=== PATIENT | male | born 1970 | race Native Hawaiian/Other Pacific Islander ===

== ENCOUNTER 2017-02-06 02:36 | Emergency (ER) | payer SELFPAY ==
[2017-02-06 03:09] VITALS: BP 147/105
== END 2017-02-06 04:26 | disposition left against medical advice (07) ==
LOC: ED 02:36
DX: S09.90XA Unspecified injury of head, initial encounter (principal); X58.XXXA Exposure to other specified factors, initial encounter; Y93.9 Activity, unspecified; Y92.89 Other specified places as the place of occurrence of the external cause; Y99.9 Unspecified external cause status; Z53.21 Procedure and treatment not carried out due to patient leaving prior to being seen by health care provider

== ENCOUNTER 2018-02-09 16:18 | Emergency (ER) | payer SELFPAY ==
[2018-02-09 16:45] VITALS: BP 150/99
[2018-02-09] MEDS ORDERED: ASPIRIN PO ONE (16:45)
[2018-02-09] MEDS ORDERED: ASPIRIN ONE (16:49)
[2018-02-09 17:08] LABS: Basophils % (Auto) 0.3 % (0.0-1.8); Eosinophils # (Auto) 0.1 K/mm3 (0.0-0.4); Eosinophils % (Auto) 1.3 % (0.0-4.3); Hematocrit 43.3 % (35.5-45.6); Hemoglobin 14.7 gm/dl (11.8-15.2); Lymphocytes # (Auto) 1.6 K/mm3 (1.2-5.4); Lymphocytes % (Auto) 22.5 % (13.4-35.0); Mean Corpuscular HGB Conc 34 % (32-34); Mean Corpuscular Hemoglobin 31 pg (28-32); Mean Corpuscular Volume 91 fl (84-94); Monocytes # (Auto) 0.6 K/mm3 (0.0-0.8); Monocytes % (Auto) 8.6 % (0.0-7.3); Platelet Count 233 K/mm3 (140-440); Red Blood Count 4.74 M/mm3 (3.65-5.03); Red Cell Distribution Width 13.5 % (13.2-15.2)
[2018-02-09 17:34] LABS: BUN/Creatinine Ratio 10; Blood Urea Nitrogen 9 mg/dL (9-20); Calcium 8.9 mg/dL (8.4-10.2); Hemolysis Index 6
--- NOTE | 2018-02-09 18:33 | Emergency Department Report ---
ED Chest Pain HPI - General Chief Complaint: Chest Pain Stated Complaint: CHEST PAINS Time Seen by Provider: 02/09/18 18:11 Source: patient Mode of arrival: Ambulatory Limitations: No Limitations - History of Present Illness Initial Comments: Patient is a 47-year-old male who states he is having some chest discomfort and facial numbness earlier today. Patient states that he believes this is secondary to anxiety. Patient does have a history of anxiety is been under a lot of stress lately. Patient last night O Rukhsana with his and went to a bar was drinking heavily smoking cigarettes and also snorted a little cocaine. Patient states this is not unusual behavior for him. Patient currently have to taking his anxiety medicines states he feels much improved. His chest pain isn't resolved. The patient does denies any shortness of breath nausea vomiting diarrhea fevers or chills at this time. - Related Data Allergies Allergy/AdvReac Type Severity Reaction Status Date / Time No Known Allergies Allergy Verified 02/06/17 02:53 Heart Score - HEART Score History: Slightly suspicious EKG: Normal Age: < 45 Risk factors: 1-2 risk factors Troponin: < normal limit HEART Score: 1 ED Review of Systems ROS: Stated complaint: CHEST PAINS Other details as noted in HPI Comment: All other systems reviewed and negative ED Past Medical Hx - Past Medical History Hx Pulmonary Embolism: Yes (anxiety) - Surgical History Past Surgical History?: No - Social History Smoking Status: Current Every Day Smoker Substance Use Type: Alcohol, Cocaine ED Physical Exam - General Limitations: No Limitations General appearance: alert, in no apparent distress - Head Head exam: Present: atraumatic, normocephalic - Eye Eye exam: Present: normal appearance - ENT ENT exam: Present: mucous membranes moist - Neck Neck exam: Present: normal inspection - Respiratory Respiratory exam: Present: normal lung sounds bilaterally. Absent: respiratory distress, wheezes, rales, rhonchi - Cardiovascular Cardiovascular Exam: Present: regular rate, normal rhythm. Absent: systolic murmur, diastolic murmur, rubs, gallop - GI/Abdominal GI/Abdominal exam: Present: soft, normal bowel sounds. Absent: distended, tenderness, guarding, rebound - Rectal Rectal exam: Present: deferred - Extremities Exam Extremities exam: Present: normal inspection - Back Exam Back exam: Present: normal inspection - Neurological Exam Neurological exam: Present: alert, oriented X3 - Psychiatric Psychiatric exam: Present: normal affect, normal mood - Skin Skin exam: Present: warm, dry, intact, normal color. Absent: rash ED Course Vital Signs 02/09/18 16:39 Temperature 99 F Pulse Rate 86 Respiratory 18 Rate Blood Pressure 150/99 O2 Sat by Pulse 99 Oximetry ED Medical Decision Making - Lab Data Result diagrams: 02/09/18 16:53 02/09/18 16:53 Lab Results 02/09/18 02/09/18 Range/Units 16:53 16:53 WBC 7.1 (4.5-11.0) K/mm3 RBC 4.74 (3.65-5.03) M/mm3 Hgb 14.7 (11.8-15.2) gm/dl Hct 43.3 (35.5-45.6) % MCV 91 (84-94) fl MCH 31 (28-32) pg MCHC 34 (32-34) % RDW 13.5 (13.2-15.2) % Plt Count 233 (140-440) K/mm3 Lymph % (Auto) 22.5 (13.4-35.0) % [place] % (Auto) 8.6 H (0.0-7.3) % Eos % (Auto) 1.3 (0.0-4.3) % Baso % (Auto) 0.3 (0.0-1.8) % Lymph # 1.6 (1.2-5.4) K/mm3 [place] # 0.6 (0.0-0.8) K/mm3 Eos # 0.1 (0.0-0.4) K/mm3 Baso # 0.0 (0.0-0.1) K/mm3 Seg Neutrophils % 67.3 (40.0-70.0) % Seg Neutrophils # 4.8 (1.8-7.7) K/mm3 Sodium 139 (137-145) mmol/L Potassium 4.0 (3.6-5.0) mmol/L Chloride 101.8 (98-107) mmol/L Carbon Dioxide 25 (22-30) mmol/L Anion Gap 16 mmol/L BUN 9 (9-20) mg/dL Creatinine 0.9 (0.8-1.5) mg/dL Estimated GFR > 60 ml/min BUN/Creatinine Ratio 10 % Glucose 96 (75-100) mg/dL Calcium 8.9 (8.4-10.2) mg/dL Troponin T < 0.010 (0.00-0.029) ng/mL - EKG Data -: EKG Interpreted by Me - EKG Data 02/09/18 18:31 EKG shows sinus rhythm rate 81 axis is normal intervals are normal patient has Q -wave in V2 there is no ST segment elevation or depressions present. Time of interpretation is 1635 - Medical Decision Making Symptoms have resolved him were most likely secondary to cocaine abuse and anxiety. Patient is to continue with his anxiety meds calcification the patient on drug use and patient be discharged home. Critical care attestation.: If time is entered above; I have spent that time in minutes in the direct care of this critically ill patient, excluding procedure time. ED Disposition Clinical Impression: Atypical chest pain, Cocaine abuse, Anxiety reaction Disposition: DC-01 TO HOME OR SELFCARE Is pt being admited?: No Does the pt Need Aspirin: No Condition: Stable Instructions: Chest Pain (ED) Referrals: PRIMARY CARE, [Primary Care Provider] - 3-5 Days Time of Disposition: 18:34
== END 2018-02-09 18:50 | disposition home or self-care (01) ==
LOC: ED 16:18
DX: R07.89 Other chest pain (principal); R20.0 Anesthesia of skin; F41.1 Generalized anxiety disorder; F14.10 Cocaine abuse, uncomplicated; F17.200 Nicotine dependence, unspecified, uncomplicated
CPT/HCPCS: 36415; 80048; 84484; 85025; 93005; 93010

== ENCOUNTER 2018-08-01 16:31 | Emergency (ER) | payer OTHER ==
--- NOTE | 2018-08-01 16:50 | Emergency Department Report ---
Blank Doc - Documentation Documentation: This is a 48-year-old male that presents with cervical spine pain. Patient was seen by PCP and is requesting for an cervical spine xray to r/o degenerative disc disease. This initial assessment/diagnostic orders/clinical plan/treatment(s) is/are subject to change based on patient's health status, clinical progression and re- assessment by fellow clinical providers in the ED. Further treatment and workup at subsequent clinical providers discretion. Patient/guardians urged not to elope from the ED as their condition may be serious if not clinically assessed and managed. Initial orders include: 1- Patient sent to [facility] for further evaluation and treatment 2- xray
[2018-08-01 16:54] VITALS: BP 137/87
--- NOTE | 2018-08-01 19:18 | XRay Report ---
PROCEDURE: XR SPINE CERVICAL 2-3V TECHNIQUE: AP, lateral , swimmer's, and odontoid views of the cervical spine HISTORY: cervical spine . Headache with left-sided weakness COMPARISONS: None . FINDINGS: The vertebral body heights are well maintained. Mild disc space narrowing at C3-C4 and C5-C6 is noted with spurring anteriorly at these levels. The alignment is normal. No prevertebral soft tissue swell ing is seen. The odontoid is intact. IMPRESSION: No acute abnormality in the cervical spine. Degenerative disc changes at C3-C4 and C5-C6 This document is electronically signed by Geraldine Mahoney MD., August 01 2018 07:15:36 PM ET
--- NOTE | 2018-08-01 19:36 | Emergency Department Report ---
ED Neck Pain [facility] Chief Complaint: Neck Pain/Injury Stated Complaint: NECK PAIN Time Seen by Provider: 08/01/18 16:48 Neck Pain Location: Posterior Neck Severity: moderate Symptoms: Yes Pain with Movement, Yes Radiation to Right Upper Ext, No Numbness, No Weakness, No Previous History Other History: 62 male comes in with a prescription from [facility] to have cervical spine films. Patient reports pain in his neck that radiates to his left upper extremity. Patient denies any trauma. Patient is currently taking Soma, citalopram, and diclofenac. Patient reports that those medications help with his pain. ED Review of Systems ROS: Stated complaint: NECK PAIN Other details as noted in HPI ED Past Medical Hx - Past Medical History Hx Pulmonary Embolism: Yes (anxiety) - Social History Smoking Status: Current Every Day Smoker Substance Use Type: None Neck Pain Exam - Exam General: Vital signs noted. No distress. Alert and acting appropriately. HEENT: No Facial Pain, No Scalp Tenderness, No Contusion, No Abrasion, No Laceration Neck Pain: Yes Midline Tenderness, Yes Right Paraspinal Tenderness, Yes Left Paraspinal Tenderness, Yes Right Trapezius Tenderness, Yes Left Trapezius Tenderness, Yes Pain with Rotation Left, Yes Pain with Extension, Yes Pain with Flexion, Yes pain with R Lateral Flexion, Yes Pain with L Lateral Flexion Chest: Yes Clear Lung Sounds, No Pain with Respirations Heart: Yes Regular Back: No Thoracic Tenderness, No Lumbar Tenderness Neuro: No Numbness, No Weakness, No Normal Reflexes, No Radicular Deficits ED Course Vital Signs 08/01/18 16:51 Temperature 98.1 F Pulse Rate 82 Respiratory 18 Rate Blood Pressure 137/87 O2 Sat by Pulse 99 Oximetry ED Medical Decision Making - Radiology Data Radiology results: report reviewed Patient: RAPHAEL RUCKER MR#: [id number] 4 : 1970 Acct:[id number] Age/Sex: 48 / M ADM Date: 08/01/18 Loc: ED Attending Dr: Ordering Physician: RADHA NOGUERA NP Date of Service: 08/01/18 Procedure(s): XR spine cervical 2-3V Accession Number(s): [id number] cc: RADHA NOGUERA NP Fluoro Time In Minutes: PROCEDURE: XR SPINE CERVICAL 2-3V TECHNIQUE: AP, lateral , swimmer's, and odontoid views of the cervical spine HISTORY: cervical spine . Headache with left-sided weakness COMPARISONS: None . FINDINGS: The vertebral body heights are well maintained. Mild disc space narrowing at C3- C4 and C5-C6 is noted with spurring anteriorly at these levels. The alignment is normal. No prevertebral soft tissue swelling is seen. The odontoid is intact. IMPRESSION: No acute abnormality in the cervical spine. Degenerative disc changes at C3-C4 and C5- C6 This document is electronically signed by Geraldine Mahoney MD., August 01 2018 07:15:36 PM ET Transcribed By: [facility] Dictated By: GERALDINE MAHONEY MD Electronically Authenticated By: GERALDINE MAHONEY MD Signed Date/Time: 08/01/181917 DD/ 18 TD/TT: 08/01/181719 - Medical Decision Making Patient has been evaluated by this provider in [facility]. Cervical spine x-rays were performed shows patient has degenerative disc disease C3 to the 4 and C4 and C5. This is made to be given to patient to take back to [facility] [place]. Patient is to continue with PAIN medications that being given to him by his primary care provider and [facility] [place]. Critical care attestation.: If time is entered above; I have spent that time in minutes in the direct care of this critically ill patient, excluding procedure time. ED Disposition Clinical Impression: Cervical pain (neck) Disposition: DC-01 TO HOME OR SELFCARE Is pt being admited?: No Does the pt Need Aspirin: No Condition: Stable Instructions: Cervical Radiculopathy (ED) Additional Instructions: Please continue with here medications that have been prescribed by her doctors. Please take her disks Dr. Loaiza for review. [facility]AR[facility] [Primary Care Provider] - 3-5 Days LAURIE LOAIZA JR, MD [Referring] - 3-5 Days
== END 2018-08-01 20:11 | disposition home or self-care (01) ==
LOC: ED 16:31
DX: M54.2 Cervicalgia (principal); F17.200 Nicotine dependence, unspecified, uncomplicated
CPT/HCPCS: 72040

== ENCOUNTER 2020-04-28 20:04 | Emergency (ER) | payer SELFPAY ==
--- NOTE | 2020-04-28 20:47 | Event Note ---
ED Screening Note ED Screening Note: states he had blood in stool two episodes abd pain began 3-4 days ago no n/v/d straining to have a BM no fever no dysuria, no urinary symptoms pmhx PUD allergy: none +ETOH, once a week +smoker, 2 packs a week This initial assessment/diagnostic orders/clinical plan/treatment(s) is/are subject to change based on patients health status, clinical progression and re- assessment by fellow clinical providers in the ED. Further treatment and workup at subsequent clinical providers discretion. Patient/guardian urged not to elope from the ED as their condition may be serious if not clinically assessed and managed. Initial orders include: labs
[2020-04-28 21:23] LABS: Basophils % (Auto) 0.3 % (0.0-1.8); Eosinophils # (Auto) 0.1 K/mm3 (0.0-0.4); Eosinophils % (Auto) 1.1 % (0.0-4.3); Hematocrit 41.2 % (35.5-45.6); Hemoglobin 13.9 gm/dl (11.8-15.2); Lymphocytes # (Auto) 2.1 K/mm3 (1.2-5.4); Lymphocytes % (Auto) 22.6 % (13.4-35.0); Mean Corpuscular HGB Conc 34 % (32-34); Mean Corpuscular Volume 91 fl (84-94); Monocytes # (Auto) 0.6 K/mm3 (0.0-0.8); Monocytes % (Auto) 6.3 % (0.0-7.3); Platelet Count 244 K/mm3 (140-440); Red Blood Count 4.53 M/mm3 (3.65-5.03); Red Cell Distribution Width 12.3 % (13.2-15.2)
[2020-04-28 21:43] LABS: Alanine Aminotransferase 20 units/L (7-56); Albumin 4.3 g/dL (3.9-5); BUN/Creatinine Ratio 13; Blood Urea Nitrogen 12 mg/dL (9-20); Calcium 9.5 mg/dL (8.4-10.2); Hemolysis Index 4
[2020-04-28] MEDS ORDERED: dexAMETHasone 20 MG/5 ML VIAL IM ONE (22:30)
[2020-04-28] MEDS ORDERED: KETOROLAC 30 MG/1 ML INJ IM ONE (22:30)
--- NOTE | 2020-04-28 23:22 | Cat Scan Report ---
CT ABDOMEN AND PELVIS WITHOUT CONTRAST INDICATION / CLINICAL INFORMATION: bilateral flank pain. TECHNIQUE: Axial CT images were obtained through the abdomen and pelvis without IV contrast. All CT scans at our [facility] location are performed using CT dose reduction for ALARA by means of automated exposure control. COMPARISON: None available. FINDINGS: LOWER CHEST: No significant abnormality. LIVER: No significant abnormality. GALLBLADDER: No significant abnormality. BILE DUCTS: No significant abnormality. PANCREAS: No significant abnormality. SPLEEN: No significant abnormality. ADRENALS: No significant abnormality. RIGHT KIDNEY and URETER: No significant abnormality. LEFT KIDNEY and URETER: No significant abnormality. STOMACH and SMALL BOWEL: No significant abnormality. COLON: No significant abnormality. APPENDIX: Not definitively seen, but there are no findings to suggest appendicitis. PERITONEUM: No free fluid. No free air. No fluid collection. LYMPH NODES: No significant adenopathy. AORTA and ARTERIES: No significant abnormality. IVC and VEINS: No significant abnormality. URINARY BLADDER: No significant abnormality. REPRODUCTIVE ORGANS: No significant abnormality. ADDITIONAL FINDINGS: None. SKELETAL SYSTEM: No significant abnormality. IMPRESSION: 1. No acute process identified to account for patient's flank pain. There is no hydronephrosis or nep hrolithiasis. Signer Name: Shellie Sutton MD Signed: 04/28/2020 11:18 PM Workstation Name: [id number]
[2020-04-29 00:08] LABS: Bilirubin,Urine NEG (Negative); Blood,Urine NEG (Negative); Color,Urine Colorless (Yellow); Protein,Urine <15 mg/dL mg/dL (Negative); Urobilinogen,Urine < 2.0 mg/dL (<2.0)
--- NOTE | 2020-04-29 00:51 | Emergency Department Report ---
ED Back Pain/Injury HPI - General Chief Complaint: Abdominal Pain Stated Complaint: ABDOMINAL PAIN, BLOOD IN STOOL Time Seen by Provider: 04/28/20 20:46 Source: patient Limitations: No Limitations - History of Present Illness Initial Comments: Patient is a 50-year-old male with history of chronic low back pain, PE and anxiety who presents to the ED with complaint of acute exacerbation of his chronic low back pain that radiates to the right leg and lower abdomen persi stently for the last 1 week, worse in the last 2 days. Patient states that the pain is persistent and constant despite taking xcfs-wgo-erihrwi pain medications. Patient also complains of mild dry scaly erythematous maculopapular rashes diffusely with itching for the last 1 week. Patient states that the pain in the lower back gets worse with ambulation or any movement. Patient denies fever, chills, dysuria, urinary frequency and urgency, nausea, vomiting, hematuria, testicular pain, traumatic injury, heavy lifting, numbness and tingling or weakness of lower extremities bilaterally, urinary or bowel incontinence and saddle paresthesia and diarrhea. MD Complaint: back pain, other (diffuse rashes; bilateral lower abdominal pain) -: Sudden, week(s) (1) Similar Symptoms Previously: Yes Place: home Radiation: abdomen (lower abdomen) Severity: severe Severity scale (0 -10): 7 Quality: sharp, aching Consistency: constant Improves With: none Worsens With: movement, walking Context: unknown Associated Symptoms: denies other symptoms, abdominal pain (diffuse lower ab domen). denies: confusion, weakness, chest pain, numbness, difficulty walking, cough, difficulty urinating, diaphoresis, incontinence, constipation, headaches, nausea/vomiting, rash, seizure, shortness of breath, other Treatments Prior to Arrival: NSAIDS - Related Data Previous Rx's Medication Instructions Recorded Last Taken Type Ibuprofen [Motrin] 800 mg PO Q8HR PRN #30 tablet 02/15/19 Unknown Rx predniSONE [Deltasone] 20 mg PO DAILY #5 tablet 02/15/19 Unknown Rx Ibuprofen [Motrin] 800 mg PO Q8HR PRN #30 tablet 04/29/20 Unknown Rx Terbinafine (Nf) [LamiSIL] 250 mg PO QDAY #14 tablet 04/29/20 Unknown Rx methOCARBAMOL [Robaxin TAB] 750 mg PO Q12H PRN #30 tab 12/07/20 Unknown Rx predniSONE [Deltasone] 60 mg PO QDAY #15 tab 04/29/20 Unknown Rx Allergies Allergy/AdvReac Type Severity Reaction Status Date / Time No Known Allergies Allergy Verified 02/06/17 02:53 ED Review of Systems ROS: Stated complaint: ABDOMINAL PAIN, BLOOD IN STOOL Other details as noted in HPI Constitutional: denies: chills, fever Eyes: denies: eye pain, eye discharge, vision change ENT: denies: ear pain, throat pain Respiratory: denies: cough, shortness of breath, wheezing Cardiovascular: denies: chest pain, palpitations Endocrine: no symptoms reported Gastrointestinal: abdominal pain (Diffuse lower abdominal pain radiating from the low back). denies: nausea, vomiting, diarrhea Genitourinary: denies: urgency, dysuria Musculoskeletal: back pain (Low back pain), arthralgia (Right leg pain). denies: joint swelling Skin: denies: rash, lesions Neurological: denies: headache, weakness, paresthesias Psychiatric: denies: anxiety, depression Hematological/Lymphatic: denies: easy bleeding, easy bruising ED Past Medical Hx - Past Medical History Previous Medical History?: Yes Hx Pulmonary Embolism: Yes (anxiety) Additional medical history: CHRONIC SPINE PAIN - Social History Smoking Status: Never Smoker Substance Use Type: None - Medications Home Medications: Home Medications Medication Instructions Recorded Confirmed Last Taken Type Ibuprofen [Motrin] 800 mg PO Q8HR PRN #30 tablet 02/15/19 Unknown Rx predniSONE [Deltasone] 20 mg PO DAILY #5 tablet 02/15/19 Unknown Rx Ibuprofen [Motrin] 800 mg PO Q8HR PRN #30 tablet 04/29/20 Unknown Rx Terbinafine (Nf) [LamiSIL] 250 mg PO QDAY #14 tablet 04/29/20 Unknown Rx methOCARBAMOL [Robaxin TAB] 750 mg PO Q12H PRN #30 tab 04/29/20 Unknown Rx predniSONE [Deltasone] 60 mg PO QDAY #15 tab 04/29/20 Unknown Rx ED Physical Exam - General Limitations: No Limitations General appearance: alert, in no apparent distress - Head Head exam: Present: atraumatic, normocephalic, normal inspection - Eye Eye exam: Present: normal appearance, PERRL, EOMI Pupils: Present: normal accommodation - ENT ENT exam: Present: normal exam, normal orophraynx, mucous membranes moist, TM's normal bilaterally, normal external ear exam - Neck Neck exam: Present: normal inspection, full ROM - Respiratory Respiratory exam: Present: normal lung sounds bilaterally. Absent: respiratory distress, wheezes, rhonchi, chest wall tenderness, accessory muscle use, decreased breath sounds, prolonged expiratory - Cardiovascular Cardiovascular Exam: Present: regular rate, normal rhythm, normal heart sounds. Absent: systolic murmur, diastolic murmur, rubs, gallop - GI/Abdominal GI/Abdominal exam: Present: soft, normal bowel sounds. Absent: tenderness, guarding, rebound, hyperactive bowel sounds, hypoactive bowel sounds, organomegaly - Extremities Exam Extremities exam: Present: normal inspection, full ROM, normal capillary refill - Back Exam Back exam: Present: normal inspection, full ROM, tenderness (Palpable lumbosacral paraspinal musculoskeletal tenderness), muscle spasm, paraspinal tenderness. Absent: CVA tenderness (L) - Neurological Exam Neurological exam: Present: alert, oriented X3, CN II-XII intact, normal gait, reflexes normal - Psychiatric Psychiatric exam: Present: normal affect, normal mood - Skin Skin exam: Present: warm, dry, intact, normal color, erythema (Dry scaly mildly erythematous rashes diffusely). Absent: rash ED Course Vital Signs 04/28/20 20:18 Temperature 98.6 F Pulse Rate 89 Respiratory 18 Rate Blood Pressure 151/91 O2 Sat by Pulse 99 Oximetry ED Medical Decision Making - Lab Data Result diagrams: 04/28/20 20:51 04/28/20 20:51 - Radiology Data Radiology results: report reviewed, image reviewed Findings [address] [address] Cat Scan Report Signed Patient: RAPHAEL RUCKER MR#: [id number] 4 : 1970 Acct:[id number] Age/Sex: 50 / M ADM Date: 04/28/20 Loc: ED Attending Dr: Ordering Physician: GARDENIA OAKLEY Date of Service: 04/28/20 Procedure(s): CT abdomen pelvis wo con Accession Number(s): [id number] cc: GARDENIA OAKLEY CT ABDOMEN AND PELVIS WITHOUT CONTRAST INDICATION / CLINICAL INFORMATION: bilateral flank pain. TECHNIQUE: Axial CT images were obtained through the abdomen and pelvis without IV contrast. All CT scans at this location are performed using CT dose reduction for ALARA by means of automated exposure control. COMPARISON: None available. FINDINGS: LOWER CHEST: No significant abnormality. LIVER: No significant abnormality. GALLBLADDER: No significant abnormality. BILE DUCTS: No significant abnormality. PANCREAS: No significant abnormality. SPLEEN: No significant abnormality. ADRENALS: No significant abnormality. RIGHT KIDNEY and URETER: No significant abnormality. LEFT KIDNEY and URETER: No significant abnormality. STOMACH and SMALL BOWEL: No significant abnormality. COLON: No significant abnormality. APPENDIX: Not definitively seen, but there are no findings to suggest appendicitis. PERITONEUM: No free fluid. No free air. No fluid collection. LYMPH NODES: No significant adenopathy. AORTA and ARTERIES: No significant abnormality. IVC and VEINS: No significant abnormality. URINARY BLADDER: No significant abnormality. REPRODUCTIVE ORGANS: No significant abnormality. ADDITIONAL FINDINGS: None. SKELETAL SYSTEM: No significant abnormality. IMPRESSION: 1. No acute process identified to account for patient's flank pain. There is no hydronephrosis or nephrolithiasis. Signer Name: Shellie Sutton MD Signed: 04/28/2020 11:18 PM Workstation Name: [id number] Transcribed By: [facility] Dictated By: Shellie Sutton MD Electronically Authenticated By: Shellie Sutton MD Signed Date/Time: 04/28/202317 DD/ 12 TD/TT: - Medical Decision Making This is a 50-year-old male with history of chronic low back pain, PE and anxiety who presents to the ED with complaint of acute exacerbation of his chronic low back pain that radiates to the right leg and lower abdomen persistently for the last 1 week, worse in the last 2 days. Patient states that the pain is persistent and constant despite taking tpwx-pzt-zfsracc pain medications. Patient also complains of mild dry scaly erythematous maculop apular rashes diffusely with itching for the last 1 week. Patient states that the pain in the lower back gets worse with ambulation or any movement. In the ED, patient is alert and oriented x3 and is not in distress. Patient was treated for pain in the ED and lab test results were reviewed and are all nonactionable including urinalysis. Abdomen pelvis CT scan without contrast showed no acute abnormalities. On reevaluation, patient's pain is well controlled medications. Patient will discharge home on pain medications and muscle relaxants and was advised to follow-up with his primary care physician in 7 to 10 days for reevaluation or return to the ED immediately if symptoms get worse. - Differential Diagnosis Muscle spasm; muscle strain; kidney stones; constipation; sciatica; UTI Critical care attestation.: If time is entered above; I have spent that time in minutes in the direct care of this critically ill patient, excluding procedure time. ED Disposition Clinical Impression: Acute exacerbation of chronic low back pain, Tinea corporis Chronic low back pain with right-sided sciatica Qualifiers: Back pain laterality: right Qualified Code(s): M54.41 - Lumbago with sciatica, right side; G89.29 - Other chronic pain Disposition: TO HOME OR SELFCARE Is pt being admited?: No Does the pt Need Aspirin: No Condition: Stable Instructions: Chronic Back Pain, Igek-pj-Wigr, Sciatica, Lyqu-qp-Sxxl, Body Ringworm, Muscle Cramps and Spasms, [id number] Additional Instructions: All lab test results are unremarkable. Abdomen pelvis CT scan without contrast shows no acute abnormalities. Therefore take medications with food, drink plenty of fluids and follow-up with your primary care physician in 7 to 10 days for reevaluation. Return to the ED immediately if symptoms get worse. Prescriptions: predniSONE [Deltasone] 60 mg PO QDAY #15 tab Terbinafine (Nf) [LamiSIL] 250 mg PO QDAY #14 tablet Ibuprofen [Motrin] 800 mg PO Q8HR PRN #30 tablet PRN Reason: Pain , Severe (7-10) methOCARBAMOL [Robaxin TAB] 750 mg PO Q12H PRN #30 tab PRN Reason: Muscle Spasm Referrals: [facility] [Provider Group] - 7-10 days Time of Disposition: 00:56 Print Language: HAITIAN
[2020-04-29 01:22] VITALS: BP 137/88
== END 2020-04-29 01:19 | disposition home or self-care (01) ==
LOC: ED 20:04
DX: M54.41 Lumbago with sciatica, right side (principal); G89.29 Other chronic pain; B35.4 Tinea corporis; F41.9 Anxiety disorder, unspecified; Z79.899 Other long term (current) drug therapy
CPT/HCPCS: 36415; 74176; 80053; 81001; 83690; 85025; 96372; 99284; J1100; J1885

== ENCOUNTER 2022-02-04 12:42 | Emergency (ER) | payer SELFPAY ==
[2022-02-04 12:55] VITALS: BP 167/88
--- NOTE | 2022-02-04 14:17 | Ultrasound Report ---
Scrotal Ultrasound HISTORY: testicle pain. TECHNIQUE: Grayscale and color imaging performed. COMPARISON: CT abdomen/pelvis from 04/28/2020 FINDINGS: Right testicle measures 4.3 x 2.0 x 3.0 cm with normal appearance and preserved blood flow. Epididymi s is normal. No hydrocele. Left testicle measures 4.1 x 2.1 x 3.1 cm with normal appearance and preserved blood flow. Epididymis is normal. No significant hydrocele. IMPRESSION: Unremarkable exam. Signer Name: Nico Hollingsworth MD Signed: 02/04/2022 2:13 PM Workstation Name: [id number]
[2022-02-04 19:57] LABS: Basophils % (Auto) 0.2 % (0.0-1.8); Eosinophils # (Auto) 0.2 K/mm3 (0.0-0.4); Eosinophils % (Auto) 2.1 % (0.0-4.3); Hematocrit 43.2 % (35.5-45.6); Hemoglobin 14.5 gm/dl (11.8-15.2); Lymphocytes # (Auto) 2.1 K/mm3 (1.2-5.4); Mean Corpuscular HGB Conc 34 % (32-34); Mean Corpuscular Volume 92 fl (84-94); Monocytes # (Auto) 0.5 K/mm3 (0.0-0.8); Monocytes % (Auto) 6.6 % (0.0-7.3); Platelet Count 227 K/mm3 (140-440); Red Blood Count 4.67 M/mm3 (3.65-5.03); Red Cell Distribution Width 13.5 % (13.2-15.2)
[2022-02-04 20:52] LABS: BUN/Creatinine Ratio 9; Blood Urea Nitrogen 7 mg/dL (9-20); Calcium 9.3 mg/dL (8.4-10.2); Hemolysis Index 7
[2022-02-04 22:02] LABS: Mucus,Urine FEW /HPF; RBC,Urine < 1.0 /HPF (0.0-6.0)
[2022-02-04 22:04] LABS: Color,Urine Yellow (Yellow)
--- NOTE | 2022-02-04 23:50 | Emergency Department Report ---
ED Male HPI - General Chief complaint: Medical Clearance Stated complaint: TESTICULAR PAIN Time Seen by Provider: 02/04/22 21:02 Source: patient Mode of arrival: Ambulatory Limitations: No Limitations - History of Present Illness Initial comments: 51-year-old male presents emerged department complaining of a 1 day history of lower back pain associated with increased urination and shooting pain that radiates down towards the right testicle of unknown etiology reports no no traumatic events. No burning with urination no testicular swelling or rash. Reports no fever, chills, sweats. No hemoptysis no hematemesis hematochezia. No suspicion of STD -: Gradual Location: right testicle Radiation: none Severity: mild Quality: aching, dull Consistency: constant denies other symptoms. denies: discharge, mass, urinary retention, blood in urine, nausea/vomiting, incontinence - Related Data Sexually active: Yes Previous Rx's Medication Instructions Recorded Last Taken Type Ibuprofen [Motrin] 800 mg PO Q8HR PRN #30 tablet 02/15/19 Unknown Rx predniSONE [Deltasone] 20 mg PO DAILY #5 tablet 02/15/19 Unknown Rx Ibuprofen [Motrin] 800 mg PO Q8HR PRN #30 tablet 04/29/20 Unknown Rx Terbinafine (Nf) [LamiSIL] 250 mg PO QDAY #14 tablet 04/29/20 Unknown Rx methOCARBAMOL [Robaxin TAB] 750 mg PO Q12H PRN #30 tab 04/29/20 Unknown Rx predniSONE [Deltasone] 60 mg PO QDAY #15 tab 04/29/20 Unknown Rx Doxycycline Hyclate [Doxycycline 100 mg PO Q12HR #14 tab 02/04/22 Unknown Rx Hyclate TAB] Ketorolac [Toradol] 10 mg PO Q6H PRN #10 02/04/22 Unknown Rx Allergies Allergy/AdvReac Type Severity Reaction Status Date / Time No Known Allergies Allergy Verified 02/04/22 12:55 ED Review of Systems ROS: Stated complaint: TESTICULAR PAIN Other details as noted in HPI Comment: All other systems reviewed and negative ED Past Medical Hx - Past Medical History Hx Pulmonary Embolism: Yes (anxiety) Additional medical history: CHRONIC SPINE PAIN - Social History Smoking Status: Never Smoker Substance Use Type: None - Medications Home Medications: Home Medications Medication Instructions Recorded Confirmed Last Taken Type Ibuprofen [Motrin] 800 mg PO Q8HR PRN #30 tablet 02/15/19 Unknown Rx predniSONE [Deltasone] 20 mg PO DAILY #5 tablet 02/15/19 Unknown Rx Ibuprofen [Motrin] 800 mg PO Q8HR PRN #30 tablet 04/29/20 Unknown Rx Terbinafine (Nf) [LamiSIL] 250 mg PO QDAY #14 tablet 04/29/20 Unknown Rx methOCARBAMOL [Robaxin TAB] 750 mg PO Q12H PRN #30 tab 04/29/20 Unknown Rx predniSONE [Deltasone] 60 mg PO QDAY #15 tab 04/29/20 Unknown Rx Doxycycline Hyclate [Doxycycline 100 mg PO Q12HR #14 tab 02/04/22 Unknown Rx Hyclate TAB] Ketorolac [Toradol] 10 mg PO Q6H PRN #10 02/04/22 Unknown Rx ED Physical Exam - General Limitations: No Limitations General appearance: alert, in no apparent distress - Head Head exam: Present: atraumatic, normocephalic - Eye Eye exam: Present: normal appearance, PERRL, EOMI - ENT ENT exam: Present: normal exam, normal orophraynx, mucous membranes moist, TM's normal bilaterally - Neck Neck exam: Present: normal inspection, full ROM - Respiratory Respiratory exam: Present: normal lung sounds bilaterally. Absent: respiratory distress, wheezes, rales, chest wall tenderness, accessory muscle use - Cardiovascular Cardiovascular Exam: Present: regular rate, normal rhythm. Absent: systolic murmur, diastolic murmur, rubs, gallop - GI/Abdominal GI/Abdominal exam: Present: soft, normal bowel sounds - Rectal Rectal exam: Present: deferred - Extremities Exam Extremities exam: Present: normal inspection - Back Exam Back exam: Present: normal inspection - Neurological Exam Neurological exam: Present: alert, oriented X3 - Psychiatric Psychiatric exam: Present: normal affect, normal mood - Skin Skin exam: Present: warm, dry, intact, normal color. Absent: rash ED Course Vital Signs 02/04/22 12:53 Temperature 98.8 F Pulse Rate 85 Respiratory 18 Rate Blood Pressure 167/88 [Left] O2 Sat by Pulse 99 Oximetry ED Medical Decision Making - Lab Data Result diagrams: 02/04/22 18:48 02/04/22 20:12 Lab Results 02/04/22 02/04/22 02/04/22 Range/Units 18:48 20:12 21:26 WBC 7.6 (4.5-11.0) K/mm3 RBC 4.67 (3.65-5.03) M/mm3 Hgb 14.5 (11.8-15.2) gm/dl Hct 43.2 (35.5-45.6) % MCV 92 (84-94) fl MCH 31 (28-32) pg MCHC 34 (32-34) % RDW 13.5 (13.2-15.2) % Plt Count 227 (140-440) K/mm3 Lymph % (Auto) 27.0 (13.4-35.0) % [place] % (Auto) 6.6 (0.0-7.3) % Eos % (Auto) 2.1 (0.0-4.3) % Baso % (Auto) 0.2 (0.0-1.8) % Lymph # (Auto) 2.1 (1.2-5.4) K/mm3 [place] # (Auto) 0.5 (0.0-0.8) K/mm3 Eos # (Auto) 0.2 (0.0-0.4) K/mm3 Baso # (Auto) 0.0 (0.0-0.1) K/mm3 Seg Neutrophils % 64.1 (40.0-70.0) % Seg Neutrophils # 4.9 (1.8-7.7) K/mm3 Sodium 142 (137-145) mmol/L Potassium 4.1 (3.6-5.0) mmol/L Chloride 104.3 (98-107) mmol/L Carbon Dioxide 25 (22-30) mmol/L Anion Gap 17 mmol/L BUN 7 L (9-20) mg/dL Creatinine 0.8 (0.8-1.3) mg/dL Estimated GFR > 60 ml/min BUN/Creatinine Ratio 9 % Glucose 84 (75-100) mg/dL Calcium 9.3 (8.4-10.2) mg/dL Urine Color Yellow (Yellow) Urine Turbidity Clear (Clear) Specific [place] (Man) 1.015 (1.003-1.030) Ur Protein (Man) Negative (Negative) mg/dL Ur Ketones (Man) Negative (Negative) Ur Nitrite (Man) Negative (Negative) Ur Reducing Substances Not Reportable Urine Bilirubin (Man) Negative (Negative) Urine Ictotest Not Reportable Leukocyte Esterase (Man) Negative (Negative) Urine WBC (Auto) 1.0 (0.0-6.0) /HPF Urine RBC (Auto) < 1.0 (0.0-6.0) /HPF U Epithel Cells (Auto) < 1.0 (0-13.0) /HPF Urine RBC (Manual) Negative (Negative) Urine Mucus Few /HPF - Radiology Data Radiology results: report reviewed [facility] [address] [place] [address] Ultrasound Report Signed Patient: RAPHAEL RUCKER MR#: [id number] 4 : 1970 Acct:[id number] Age/Sex: 51 / M ADM Date: 02/04/22 Loc: ED Attending Dr: Ordering Physician: GRIS BRYAN Date of Service: 02/04/22 Procedure(s): US testicular doppler comp Accession Number(s): [id number] cc: GRIS BRYAN Scrotal Ultrasound HISTORY: testicle pain. TECHNIQUE: Grayscale and color imaging performed. COMPARISON: CT abdomen/pelvis from 04/28/2020 FINDINGS: Right testicle measures 4.3 x 2.0 x 3.0 cm with normal appearance and preserved blood flow. Epididymis is normal. No hydrocele. Left testicle measures 4.1 x 2.1 x 3.1 cm with normal appearance and preserved blood flow. Epididymis is normal. No significant hydrocele. IMPRESSION: Unremarkable exam. Signer Name: Nico Hollingsworth MD Signed: 02/04/2022 2:13 PM Workstation Name: [id number] Transcribed By: ANASTASIA Dictated By: Nico Hollingsworth MD Electronically Authenticated By: Nico Hollingsworth MD Signed Date/Time: 02/04/22 141 DD/ 141 TD/TT: Critical care attestation.: If time is entered above; I have spent that time in minutes in the direct care of this critically ill patient, excluding procedure time. ED Disposition Clinical Impression: Dysuria, Testicular pain, right Disposition: 01 HOME / SELF CARE / HOMELESS Is pt being admited?: No Does the pt Need Aspirin: No Condition: Stable Instructions: Dysuria, Testicular Self-Exam, Urodynamic Testing, [id number], Pain Without a Known Cause Prescriptions: Doxycycline Hyclate [Doxycycline Hyclate TAB] 100 mg PO Q12HR #14 tab Ketorolac [Toradol] 10 mg PO Q6H PRN #10 PRN Reason: Pain Referrals: PRIMARY CARE, [Primary Care Provider] - 2-3 Days
== END 2022-02-05 00:26 | disposition home or self-care (01) ==
LOC: ED 12:42
DX: R30.0 Dysuria (principal); N50.811 Right testicular pain
CPT/HCPCS: 36415; 80048; 81001; 85025; 93975; 99284